=== PATIENT | female | born 1960 | race Caucasian/White ===

== ENCOUNTER 2019-02-10 12:24 | Emergency (ER) | payer BC, OTHER ==
[~2019-02-10] VITALS: Ht 160 cm; Wt 84.4 kg
[2019-02-10 12:30] VITALS: Ht 160 cm; Wt 84.4 kg
[2019-02-10 14:52] VITALS: BP 126/71
== END 2019-02-10 14:52 | disposition home or self-care (01) ==
LOC: ED 12:24
DX: S83.91XA Sprain of unspecified site of right knee, initial encounter (principal); I10 Essential (primary) hypertension; E11.9 Type 2 diabetes mellitus without complications; E78.00 Pure hypercholesterolemia, unspecified; W01.198A Fall on same level from slipping, tripping and stumbling with subsequent striking against other object, initial encounter; Y93.89 Activity, other specified; Y92.89 Other specified places as the place of occurrence of the external cause; Y99.8 Other external cause status
CPT/HCPCS: Q0162